=== PATIENT | male | born 1960 | race Caucasian/White ===

== ENCOUNTER → 2018-01-28 | Outpatient (CLI) | payer OTHER ==
--- NOTE | 2018-01-28 19:02 | PCVCIMAG ---
EXAM: BILATERAL SUPERFICIAL VENOUS DUPLEX INDICATION: Leg pain and swelling.Previous vein procedures although patient is unsure what was done. FINDINGS: Right leg: No thrombus in the common femoral, main femoral, or popliteal veins. These veins are compressible. Right Great Saphenous Vein: At the saphenofemoral junction the diameter is 8.8 mm, in the mid thigh it is 11.4 mm, and in the calf it is 12.2 mm. There is significant venous insufficiency/reflux throughout. Venous insufficiency/reflux duration is 3.7 seconds. Right Small Saphenous Vein: At the saphenopopliteal junction the diameter is 5.5 mm, and in the calf it is 9.6 mm. There is significant venous insufficiency/reflux throughout. Venous insufficiency/reflux duration is 2.9 seconds. There is a cranial extension present. Left leg: No thrombus in the common femoral, main femoral, or popliteal veins. These veins are compressible. Left Great Saphenous Vein: At the saphenofemoral junction the diameter is 7.6 mm, in the mid thigh it is 11.9 mm, and in the calf it is 9.4 mm. There is significant venous insufficiency/reflux throughout. Venous insufficiency/reflux duration is 3.6 seconds. In the upper thigh are a couple of accessory saphenous veins as well. Left Small Saphenous Vein: At the saphenopopliteal junction the diameter is 5.5 mm, and in the calf it is 10.9 mm. There is significant venous insufficiency/reflux throughout. Venous insufficiency/reflux duration is 2.5 seconds. There is not a cranial extension present. IMPRESSION: Right Great Saphenous Vein: Significant venous insufficiency/reflux is present as noted above. Right Small Saphenous Vein: Significant venous insufficiency/reflux is present as noted above. Left Great Saphenous Vein: Significant venous insufficiency/reflux is present as noted above. In the upper thigh there are a couple of accessory saphenous veins. Left Small Saphenous Vein: Significant venous insufficiency/reflux is present as noted above. Incidental note is made of a 1.7 x 1.7 x 3.4 cm hypoechoic structure behind the left knee. It is not definitely cystic. If this is of clinical concern further evaluation with MRI examination of the left knee with and without contrast may be helpful. LOC:[id number]
== END | disposition home or self-care (01) ==
LOC: PCVCIMAG 16:34
PROVIDERS: ATTEND Emergency Medicine
DX: I87.2 Venous insufficiency (chronic) (peripheral) (principal)
CPT/HCPCS: 93970